=== PATIENT | male | born 1980 | race Caucasian/White ===

== ENCOUNTER 2017-05-22 14:42 | Emergency (ER) | payer BC | END 2017-05-22 17:50 | disposition home or self-care (01) | LOC: D.ER 14:42 | DX: S39.012A Strain of muscle, fascia and tendon of lower back, initial encounter (principal); X58.XXXA Exposure to other specified factors, initial encounter; Y93.89 Activity, other specified; Y92.89 Other specified places as the place of occurrence of the external cause; M62.830 Muscle spasm of back; F17.200 Nicotine dependence, unspecified, uncomplicated ==